=== PATIENT | male | born 1990 | race African-American/Black ===

== ENCOUNTER 2016-04-11 19:55 | Emergency (ER) | payer SELFPAY ==
[2016-04-11] MEDS ORDERED: ACETAMINOPHEN 325 MG TABLET PO ONE (20:49)
--- NOTE | 2016-04-11 20:49 | ER Document Report ---
ED Medical Screen (RME) - General Stated Complaint: FEVER/BODY ACHES Notes: [place] onset fever, nausea, body aches, headaches Did not receive a flu vaccine this year. Febrile at 102.2. Last dose of medication is Excedrin about 11. I have greeted and performed a rapid initial assessment of this patient. A comprehensive ED assessment and evaluation of the patient, analysis of test results and completion of the medical decision making process will be conducted by additional ED providers. Physical Exam - Vital signs Vitals: Temp Pulse Resp BP Pulse Ox 102.2 F H 106 H 18 158/99 H 97 04/11/16 20:34 04/11/16 20:34 04/11/16 20:34 04/11/16 20:34 04/11/16 20:34 Course - Vital Signs Vital signs: Temp Pulse Resp BP Pulse Ox 102.2 F H 106 H 18 158/99 H 97 04/11/16 20:34 04/11/16 20:34 04/11/16 20:34 04/11/16 20:34 04/11/16 20:34
[2016-04-11 23:15] VITALS: BP 142/86
[2016-04-11] MEDS ORDERED: IBUPROFEN 800 MG TABLET PO ONE (23:24)
[2016-04-11] MEDS ORDERED: ONDANSETRON 4 MG TAB.RAPDIS PO ONE (23:24)
--- NOTE | 2016-04-11 23:27 | ER Document Report ---
ED Fever - General Chief Complaint: Fever Stated Complaint: FEVER/BODY ACHES Time seen by provider: 23:24 Notes: Patient is a 18-year-old male that comes emergency department for chief complaint of fever, body aches, sinus congestion with runny nose, and headaches since yesterday. Patient denies any medical problems, takes no daily medications, no obvious sick contacts. Patient has not had the flu shot this year. TRAVEL OUTSIDE OF THE [place] IN LAST 30 DAYS: No - Related Data Allergies/Adverse Reactions: No Known Allergies Allergy (Unverified 04/11/16 20:48) Past Medical History - General Information source: Patient - Social History Smoking Status: Never Smoker Cigarette use (# per day): No Chew tobacco use (# tins/day): No Frequency of alcohol use: None Drug Abuse: None Lives with: Family Family History: Reviewed & Not Pertinent Patient has suicidal ideation: No Patient has homicidal ideation: No - Medical History Medical History: Negative Renal/ Medical History: Denies: Hx Peritoneal Dialysis Surgical Hx: Negative - Immunizations Hx Diphtheria, Pertussis, Tetanus Vaccination: No Review of Systems - Review of Systems Constitutional: See HPI EENT: See HPI Cardiovascular: No symptoms reported Respiratory: See HPI Gastrointestinal: No symptoms reported Genitourinary: No symptoms reported Male Genitourinary: No symptoms reported Musculoskeletal: No symptoms reported Skin: No symptoms reported Hematologic/Lymphatic: No symptoms reported Neurological/Psychological: No symptoms reported Physical Exam - Vital signs Vitals: Temp Pulse Resp BP Pulse Ox 102.2 F H 106 H 18 158/99 H 97 04/11/16 20:34 04/11/16 20:34 04/11/16 20:34 04/11/16 20:34 04/11/16 20:34 Interpretation: Normal - General General appearance: Appears well, Alert In distress: None - Patient alert and well-appearing - HEENT Head: Normocephalic, Atraumatic Eyes: Normal Conjunctiva: Normal Extraocular movements intact: Yes Eyelashes: Normal Pupils: PERRL Sinus: Other - Patient sounds slightly congested Nasal: Other - Mild bilateral nasal congestion Pharynx: Normal. No: Erythema, Exudate Neck: Normal. No: Anterior cervical chain, Posterior cervical chain, Meningismus - Respiratory Respiratory status: No respiratory distress Chest status: Nontender Breath sounds: Normal Chest palpation: Normal - Cardiovascular Rhythm: Regular, Tachycardia - Borderline Heart sounds: Normal auscultation, S1 appreciated, S2 appreciated Murmur: No - Abdominal Inspection: Normal Distension: No distension Bowel sounds: Normal Tenderness: Nontender. No: Tender, Guarding Organomegaly: No organomegaly - Back Back: Normal, Nontender - Extremities General upper extremity: Normal inspection, Nontender, Normal color, Normal ROM , Normal temperature General lower extremity: Normal inspection, Nontender, Normal color, Normal ROM , Normal temperature, Normal weight bearing. No: Paco's sign - Neurological Neuro grossly intact: Yes Cognition: Normal Orientation: AAOx4 Alice Coma Scale Eye Opening: Spontaneous Alice Coma Scale Verbal: Oriented Laice Coma Scale Motor: Obeys Commands Levasy Coma Scale Total: 15 Speech: Normal Motor strength normal: LUE, RUE, LLE, RLE Sensory: Normal - Psychological Associated symptoms: Normal affect, Normal mood - Skin Skin Temperature: Warm Skin Moisture: Dry Skin Color: Normal Course - Re-evaluation Re-evalutation: Patient with mild sinus congestion, unremarkable lung, throat, neck exam. No nuchal rigidity. Mild symptoms suggestive of a viral syndrome. Fever resolved after Tylenol, patient noted to still be mildly tachycardic, patient states that he has not had any fluids this afternoon, states that he is tired and he wants to go home, he states he starting to get a headache because he is so tired , he states he likes a dose of something for the headache and then he will go home and hydrate and rest. Patient declines rechecking her vital signs were any additional evaluations. Patient is extremely well appearing on exam patient advised return if he develops any concerning worsening symptoms such as severe headache, shortness of breath, etc. Patient states understanding and agreement - Vital Signs Vital signs: Temp Pulse Resp BP Pulse Ox 99.7 F 114 H 18 142/86 H 97 04/11/16 23:14 04/11/16 23:15 04/11/16 23:12 04/11/16 23:14 04/11/16 23:14 Discharge - Discharge Clinical Impression: Sinus congestion Fever Qualifiers: Fever type: unspecified Qualified Code(s): R50.9 - Fever, unspecified Condition: Stable Disposition: HOME, SELF-CARE Additional Instructions: Influenza test is negative, however your symptoms and examination are still suggestive of a virus has the cause of your symptoms. Take ibuprofen or Tylenol for fever, hydrate, take the Phenergan if needed for nausea, rest. Take the nasal spray to reduce congestion. Drink plenty of fluids. Follow-up with primary care. Return the emergency department for any concerning or worsening symptoms including severe cough and shortness of breath, worsening persistent headache, uncontrolled vomiting, etc. Prescriptions: Fluticasone Propionate [Flonase Nasal [place] 50 Mcg/[place] 16 gm] 2 sprays NASL Q12 #1 inhaler Promethazine HCl [Phenergan 25 mg Tablet] 1 - 2 tab PO Q6H PRN #15 tablet PRN Reason: Forms: Return to Work
== END 2016-04-11 23:39 | disposition home or self-care (01) ==
LOC: ER 19:55
DX: R50.9 Fever, unspecified (principal); R09.81 Nasal congestion; R09.89 Other specified symptoms and signs involving the circulatory and respiratory systems; R51 Headache
CPT/HCPCS: 99283; 87804; S0119

== ENCOUNTER 2017-06-20 05:02 | Emergency (ER) | payer OTHER ==
--- NOTE | 2017-06-20 05:38 | ER Document Report ---
HPI - HPI Pain Level: 5 Notes: Patient is a 27-year-old male with no significant past medical history who presents to the ED complaining of a burn to his left posterior hand prior to arrival while he was at work. 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 Patient states that he had immediate blister and the blister has already peeled away. Patient states that he does have associated pain in that area with weeping. Patient states that they did apply a cream to his hand prior to arrival. Patient states that the pain does not radiate. He is still able to move his hand without any difficulties otherwise. Denies any drug allergies. No other concerns or complaints at this time. Denies any headache, fever, URI, sore throat, chest pain, palpitations, syncope, cough, shortness of breath, wheeze, dyspnea, abdominal pain, nausea/vomiting/diarrhea, urinary retention, dysuria, hematuria, loss of control of bowel or bladder, numbness/ tingling, muscle paralysis/weakness, or rash. - ROS Systems Reviewed and Negative: Yes All other systems reviewed and negative Past Medical History - Social History Smoking Status: Never Smoker Family History: Reviewed & Not Pertinent Renal/ Medical History: Denies: Hx Peritoneal Dialysis - Immunizations Hx Diphtheria, Pertussis, Tetanus Vaccination: No Vertical Provider Document - CONSTITUTIONAL Agree With Documented VS: Yes Notes: PHYSICAL EXAMINATION: GENERAL: Well-appearing, well-nourished and in no acute distress. LUNGS: Breath sounds clear to auscultation bilaterally and equal. No wheezes rales or rhonchi. HEART: Regular rate and rhythm without murmurs, rubs, gallops. Musculoskeletal: Left hand: FROM to passive/active. Strength 5+/5. N/V intact distal. Extremities: No cyanosis, clubbing, or edema b/l. Peripheral pulses 2+. Capillary refill less than 3 seconds. NEUROLOGICAL: Normal speech, normal gait. Normal sensory, motor exams PSYCH: Normal mood, normal affect. SKIN: Left posterior lateral hand, sparing the joints: There is a [id number] round partial thickness burn w/o deep tissue involvement. No bleeding, erythema , or induration. - INFECTION CONTROL TRAVEL OUTSIDE OF THE [place] IN LAST 30 DAYS: No Course - Re-evaluation Re-evalutation: 06/20/17 06:33 Patient is an afebrile, well-hydrated, 27-year-old male who presents to the ED with a secondary burn to his left posterior hand sparing the joints and the fingers. Vitals are acceptable. PE is otherwise unremarkable for any neurovascular compromise, obvious tendon/ligament rupture, obvious fracture/ dislocation, septic joint. Dr. Ivey also evaluated the patient. Wound dress with silvadene as directed. Wound was debrided and dressing placed today. Recheck with PCM in 3-5 days. Schedule an appointment with wound clinic. Return to the ED with any worsening/concerning symptoms otherwise as reviewed discharge. Patient is in agreement. - Vital Signs Vital signs: Temp Pulse Resp BP Pulse Ox 97.6 F 74 18 155/96 H 96 06/20/17 05:10 06/20/17 05:10 06/20/17 05:10 06/20/17 05:10 06/20/17 05:10 Discharge - Discharge Clinical Impression: Second degree burn Condition: Stable Disposition: HOME, SELF-CARE Instructions: Pratt ([facility]), Silvadene Cream ([facility]), Soap Cleansing ([facility]), Tetanus Immunization Given ([facility]) Additional Instructions: Keep the skin clean Wash with soap and water Tylenol/ibuprofen if needed Silvadene daily as directed Take medication as directed Monitor for any worsening symptoms Recheck with your PCM in 3-5 days Schedule a consult with the wound clinic Return to the ED with any worsening symptoms and/or development of fever, headache, chest pain, palpitations, syncope, shortness of breath, trouble breathing, abdominal pain, n/v/d, abscess, purulent discharge, red streaks, worsening swelling, or other worsening symptoms that are concerning to you. [facility] * Directions * Website * Address: [address] [place] [address] * Prescriptions: Oxycodone HCl/Acetaminophen [Oxycodone-Acetaminophen 5-325] 1 each PO TID PRN # 15 tablet PRN Reason: Silver Sulfadiazine [Silvadene] 1 - 2 gm TP BID #20 cream..g. Forms: Elevated Blood Pressure, Return to Work Referrals: Wound Care [Provider Group] - Follow up in 3-5 days ([facility] Directions Website Address: [address] [place] [id number] )
[2017-06-20] MEDS ORDERED: OXYCODONE HCL IR 5 MG TABLET PO ONE (05:40)
[2017-06-20] MEDS ORDERED: DIPH/PERTUSS(ACELL)/TETANUS VAC/PF 0.5 ML SYR (>=10YO) IM ONE (05:40)
[2017-06-20] MEDS ORDERED: SILVER SULFADIAZINE 1% CREAM 25 GM TP ONE (05:45)
[2017-06-20 06:45] VITALS: BP 132/97
== END 2017-06-20 06:40 | disposition home or self-care (01) ==
LOC: ER 05:02
DX: T23.202A Burn of second degree of left hand, unspecified site, initial encounter (principal); X08.8XXA Exposure to other specified smoke, fire and flames, initial encounter; Y93.G3 Activity, cooking and baking; Y99.0 Civilian activity done for income or pay
CPT/HCPCS: 90471; 90715; 99283

== ENCOUNTER 2017-07-03 21:57 | Emergency (ER) | payer OTHER ==
[2017-07-03 22:06] VITALS: BP 144/86
[2017-07-03] MEDS ORDERED: HYDROCODONE/ACETAMINOPHEN 5-325 MG (6 TAB/ER DISP) PO PRN (22:20)
[2017-07-03] MEDS ORDERED: SILVER SULFADIAZINE 1% CREAM 25 GM TP ONE (22:20)
--- NOTE | 2017-07-03 22:25 | ER Document Report ---
HPI - HPI Patient complains to provider of: Wound recheck Onset: Other - 3 days ago Onset/Duration: Persistent Quality of pain: Burning Pain Level: 4 Context: Patient states that he burned the top of his left hand 3 weeks ago on hot grits while at work. Patient states he was advised to follow-up with the wound clinic as well as his worker's comp provider although has not been able to get a follow-up appointment yet. Patient states that he ran out of [employer] and has not been putting a dressing on the burn for the past 2 days. Patient states since he has not been putting a dressing on his hand, his hand has become more painful while he is at work. 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 Patient denies any new injury. Associated Symptoms: Other - Left hand pain. denies: Fever Exacerbated by: Movement Relieved by: Denies Similar symptoms previously: No Recently seen / treated by doctor: Yes - ROS ROS below otherwise negative: Yes Systems Reviewed and Negative: Yes All other systems reviewed and negative - CONSTITUTIONAL Constitutional: DENIES: Fever - NEURO Neurology: DENIES: Weakness - MUSCULOSKELETAL Musculoskeletal: REPORTS: Extremity pain. DENIES: Swelling - DERM Skin Problems: Burn Past Medical History - General Information source: Patient - Social History Smoking Status: Never Smoker Drug Abuse: None Occupation: Foodservice Family History: Reviewed & Not Pertinent - Past Medical History Cardiac Medical History: Reports: Hx Hypertension Renal/ Medical History: Denies: Hx Peritoneal Dialysis Surgical Hx: Negative - Immunizations Hx Diphtheria, Pertussis, Tetanus Vaccination: Yes Vertical Provider Document - CONSTITUTIONAL Agree With Documented VS: Yes Exam Limitations: No Limitations General Appearance: WD/WN, No Apparent Distress - INFECTION CONTROL TRAVEL OUTSIDE OF THE [place] IN LAST 30 DAYS: No - HEENT HEENT: Atraumatic, Normocephalic - NECK Neck: Normal Inspection - RESPIRATORY Respiratory: Breath Sounds Normal - CARDIOVASCULAR Cardiovascular: Regular Rate, Regular Rhythm Pulses: Normal: Radial - MUSCULOSKELETAL/EXTREMETIES Musculoskeletal/Extremeties: MAEW, FROM, Tender - left hand tenderness at site of previous burn - NEURO Level of Consciousness: Awake, Alert, Appropriate Motor/Sensory: No Motor Deficit - DERM Integumentary: Warm, Dry Notes: Patient with change in pigmentation with mild erythema to dorsal aspect of left hand, no mention of erythema outside patient's burn area, no blistering Course - Re-evaluation Re-evalutation: 07/03/17 22:23 Patient without any symptoms concerning for cellulitis at this time. Patient reports that pain is increased since he stopped applying dressings to his hand. Patient has resumed work, and is frequently exposed to warm temperatures that have been increasing the pain he experiences to his hand. PT is encouraged to follow-up with wound clinic as well as his Worker's Compensation provider. - Vital Signs Vital signs: Temp Pulse Resp BP Pulse Ox 98.4 F 78 18 144/86 H 97 07/03/17 22:05 07/03/17 22:05 07/03/17 22:05 07/03/17 22:05 07/03/17 22:05 Discharge - Discharge Clinical Impression: Hand pain, left, Hx of second degree burn Condition: Stable Disposition: HOME, SELF-CARE Instructions: Pratt ([facility]), Oral Narcotic Medication ([facility]) Additional Instructions: Return immediately for any new or worsening symptoms Followup with the wound care clinic, call Thursday for an appointment Follow-up with your Workmen's Compensation provider for recheck Prescriptions: Naproxen [Naprosyn 250 Nmg Tablet] 1 tab PO BID #14 tablet Silver Sulfadiazine [Silvadene 1% Cream 50 gm Tube] 1 applic TP DAILY #50 grams Referrals: Wound Care [Provider Group] - 07/06/17
== END 2017-07-03 23:00 | disposition home or self-care (01) ==
LOC: ER 21:57
DX: T23.262A Burn of second degree of back of left hand, initial encounter (principal); X10.1XXA Contact with hot food, initial encounter; Y99.0 Civilian activity done for income or pay; M79.642 Pain in left hand; I10 Essential (primary) hypertension
CPT/HCPCS: 99282

== ENCOUNTER 2020-02-26 06:29 | Emergency (ER) | payer SELFPAY ==
--- NOTE | 2020-02-26 08:51 | ER Document Report ---
ED Oral Problem - General Chief Complaint: Toothache Stated Complaint: TOOTHACHE Time Seen by Provider: 02/26/20 08:40 Mode of Arrival: Ambulatory Information source: Patient Notes: Patient is a 29-year-old male comes emergency room complaining of right back lower dental pain. Patient states the pain started on and is gotten little bit worse. He has a history of bad mentation in the past. He denies any fever no nausea no vomiting. Patient is handling his own secretions. Denies any other medical history. TRAVEL OUTSIDE OF THE [place] IN LAST 30 DAYS: No - HPI Patient complains to provider of: Toothache Onset: Other - 2 days Onset: Sudden Quality of pain: Achy, Throbbing Severity: Moderate Pain Level: 3 - 1 no polyp or polyp or anything else thank you for coming me know Thank you alcohol [id number] Context: Fractured tooth Associated symptoms: Toothache Worsened by: Heat Relieved by: Nothing Similar symptoms previously: Yes Recently seen / treated by doctor/dentist: No - Related Data Allergies/Adverse Reactions: No Known Allergies Allergy (Unverified 04/11/16 20:48) Past Medical History - General Information source: Patient - Social History Smoking Status: Never Smoker Chew tobacco use (# tins/day): No Frequency of alcohol use: Rare Drug Abuse: None Lives with: Family Family History: Reviewed & Not Pertinent - Past Medical History Cardiac Medical History: Reports: Hx Hypertension Pulmonary Medical History: Reports: Hx Asthma Renal/ Medical History: Denies: Hx Peritoneal Dialysis - Immunizations Hx Diphtheria, Pertussis, Tetanus Vaccination: Yes Review of Systems - Review of Systems Constitutional: No symptoms reported EENT: Dental problem Cardiovascular: No symptoms reported Respiratory: No symptoms reported Gastrointestinal: No symptoms reported Genitourinary: No symptoms reported Male Genitourinary: No symptoms reported Musculoskeletal: No symptoms reported Skin: No symptoms reported Hematologic/Lymphatic: No symptoms reported Neurological/Psychological: No symptoms reported -: Yes All other systems reviewed and negative Physical Exam - Vital signs Vitals: Temp Pulse Resp BP Pulse Ox 98.7 F 88 18 178/110 H 100 02/26/20 06:38 02/26/20 06:38 02/26/20 06:38 02/26/20 06:38 02/26/20 06:38 Interpretation: Hypertensive - Notes Notes: PHYSICAL EXAMINATION: GENERAL: Well-appearing, well-nourished and in no acute distress. HEAD: Atraumatic, normocephalic. External examination shows no swelling externally of the right lower mandible. EYES: Pupils equal round and reactive to light, extraocular movements intact, sclera anicteric, conjunctiva are normal. ENT: Examination patient's oral cavity shows severe dental decay throughout the entire mouth. Primary concern is patient's right back lower molar. It is very fragmented over time his chronic condition the gum is moderately swollen with some erythema noted there is a slight discharge from around what is left of the gum tooth line. Moderate tenderness to palpation. There is no overt swelling of the cheek or gum area. NECK: Normal range of motion, supple without lymphadenopathy LUNGS: Breath sounds clear to auscultation bilaterally and equal. No wheezes rales or rhonchi. HEART: Regular rate and rhythm without murmurs NEUROLOGICAL: Normal speech, normal gait. Normal sensory, motor exams PSYCH: Normal mood, normal affect. SKIN: Warm, Dry, normal turgor, no rashes or lesions noted. Course - Re-evaluation Re-evalutation: 02/26/20 08:49 I discussed with patient has hypertension. We will repeat the BP prior to discharge. Patient states he has no history of hypertension but we will give him a clinic to follow-up with. I have also imposed upon him that we cannot fix this dental problem in the emergency room he must see a dentist. I given him the dental clinics that we have available to us. - Vital Signs Vital signs: Temp Pulse Resp BP Pulse Ox 98.7 F 88 18 162/105 H 100 02/26/20 06:38 02/26/20 06:38 02/26/20 06:38 02/26/20 06:40 02/26/20 06:38 - Laboratory Results Critical Laboratory Results Reviewed: No Critical Results - Radiology Results Critical Radiology Results Reviewed: No Critical Results Discharge - Discharge Clinical Impression: Dental infection Hypertension Qualifiers: Hypertension type: unspecified Qualified Code(s): I10 - Essential (primary) hypertension Disposition: HOME, SELF-CARE Instructions: Toothache ([facility]) Additional Instructions: Home and rest. As I informed her we cannot fix this problem on the emergency room. You need to see dentist as soon as possible. Antibiotic should help relieve the discomfort and pain over time. Muscle writing you for some strong ibuprofen take it as directed. You can also use Anbesol [id number] which helps numb the local area. Dentist is going to be your only way to fix this. However should you have increased swelling or discomfort or difficulty swallowing return to ER for reevaluation. Prescriptions: Amoxicillin 1 tab PO TID #30 tab Ibuprofen [Ibu] 800 mg PO TID #21 tablet Forms: Return to Work Referrals: [facility] [Provider Group] - Follow up as needed
[2020-02-26 09:26] VITALS: BP 166/99
== END 2020-02-26 09:26 | disposition home or self-care (01) ==
LOC: ER 06:29
DX: K04.7 Periapical abscess without sinus (principal); K02.9 Dental caries, unspecified; K08.89 Other specified disorders of teeth and supporting structures; I10 Essential (primary) hypertension; J45.909 Unspecified asthma, uncomplicated
CPT/HCPCS: 99283